=== PATIENT | female | born 1980 | race Caucasian/White ===

== ENCOUNTER 2017-02-21 19:38 | Emergency (ER) | payer MEDICARE, OTHER ==
[~2017-02-21] VITALS: Ht 170.2 cm; Wt 240.0 kg
[2017-02-21 19:41] VITALS: BP 148/67; PULSE 91; RESP 24; TEMP 98.4; O2SAT 92
[2017-02-21] MEDS ORDERED: CARV6.25 PO (22:37)
[2017-02-21] MEDS ORDERED: LISI40TA PO (22:37)
[2017-02-21] MEDS ORDERED: FURO40TA PO (22:37)
[2017-02-21] MEDS ORDERED: LEVEMIR SQ (22:37)
[2017-02-21] MEDS ORDERED: NOVOLOGP2 SQ (22:37)
[2017-02-21] MEDS ORDERED: CYMB60CA PO (22:37)
[2017-02-21] MEDS ORDERED: VENTAER INH (22:37)
[2017-02-21] MEDS ORDERED: LEVO200T4 PO (22:37)
[2017-02-21] MEDS ORDERED: SYMB160A INH (22:38)
[2017-02-21] MEDS ORDERED: POTA10TA2 PO (22:38)
--- NOTE | 2017-02-21 23:56 | PD ---
HPI Chief Complaint: Edema Time Seen by Provider: 22:46 Travel History International Travel<30 days: No Contact w/Intl Traveler<30days: No Traveled to known affect area: No History of Present Illness HPI 36-year-old female came to the emergency room with history of edema. Patient says she has history of congestive heart failure and started to swell up for past 3 days. She is on Lasix as well as multiple medications including insulin for her diabetes. Patient moved to [facility] from [facility] one month ago. She does not have a primary care physician here. She has been trying to find a primary care physician. No history of shortness of breath or chest pain. Patient was concerned that in the past when she has started swelling up like this it has led to respiratory failure and she has required intubation. Patient is however morbidly obese. Vital signs were stable. [facility] Past Medical History Narrative Medical List of her past medical, surgical, social and family history is reviewed from the nursing note. Asthma: Yes Anxiety: Yes Depression: Yes Cardiovascular Problems: Yes (DIASTOLIC HEART FAILURE) Congestive Heart Failure: Yes Diabetes: Yes Patient Takes Glucophage: No Diminished Hearing: No Immunizations Current: Yes Thyroid Disease: Yes (HYPO) ?: Not Past Surgical History Abdominal Surgery: Yes (UMBILICAN HERNIA REPAIR 2005) Cardiac Surgery: Yes (OPEN HEART 1992) Section: Yes (2003) Cholecystectomy: Yes (2003) Hysterectomy: Yes (FULL 2008) Social History Alcohol Use: No Tobacco Use: Yes (5 CIGS PER DAY) Substance Use: No Allergies-Medications (Allergen,Severity, Reaction): Coded Allergies: clindamycin (Verified Allergy, Mild, Rash, 02/21/17) doxycycline (Verified Allergy, Mild, Rash, 02/21/17) erythromycin base (Verified Allergy, Unknown, UNKNOWN, 02/21/17) sulfisoxazole (Verified Allergy, Unknown, UNKNOWN, 02/21/17) morphine (Verified Adverse Reaction, Mild, Headache, 02/21/17) Comments List of her allergies reviewed from the nursing note. Reported Meds & Prescriptions Reported Meds & Active Scripts Active Reported Potassium Chloride ER (Potassium Chloride) 10 Meq Tab 10 Meq PO BID Symbicort Inh (Budesonide/Formoterol Fumarate) 160-4.5 Mcg/Act Aero 2 Puff INH Q12HR Ventolin Hfa 18 GM Inh (Albuterol Sulfate) 90 Mcg/Act Aer 2 Puff INH Q4-6H PRN Novolog Inj (Insulin Aspart) 1,000 Unit/10 Ml Vial 0 SQ DIRECTED Sliding Scale as directed. Levemir Inj (Insulin Detemir) 1,000 unit/ 10 ML Vial 25 Units SQ BID Do not mix with any other Insulin. Lisinopril 40 Mg Tab 40 Mg PO DAILY Coreg (Carvedilol) 6.25 Mg Tab 6.25 Mg PO BID Cymbalta DR (Duloxetine HCl) 60 Mg Capdr 60 Mg PO DAILY Levothyroxine (Levothyroxine Sodium) 200 Mcg Tab 200 Mcg PO DAILY Furosemide 40 Mg Tab 40 Mg PO DAILY Narrative Medication List of her home medications reviewed from the nursing note. Review of Systems Except as stated in HPI: all other systems reviewed are Neg Cardiovascular: Positive: Edema Physical Exam Narrative GENERAL: Awake, alert, no obvious distress, morbidly obese SKIN: Focused skin assessment warm/dry. HEAD: Atraumatic. Normocephalic. EYES: Pupils equal and round. No scleral icterus. No injection or drainage. ENT: No nasal bleeding or discharge. Mucous membranes pink and moist. NECK: Trachea midline. No JVD. CARDIOVASCULAR: Regular rate and rhythm. No murmur appreciated. RESPIRATORY: No accessory muscle use. Clear to auscultation. Breath sounds equal bilaterally. GASTROINTESTINAL: Abdomen soft, non-tender, nondistended. Hepatic and splenic margins not palpable. MUSCULOSKELETAL: No obvious deformities. No clubbing. No cyanosis. No edema. NEUROLOGICAL: Awake and alert. No obvious cranial nerve deficits. Motor grossly within normal limits. Normal speech. PSYCHIATRIC: Appropriate mood and affect; insight and judgment normal. Data Data Last Documented VS Orders Orders Electrocardiogram (02/22/17 00:01) Basic Metabolic Panel (Bmp) (02/22/17 00:01) B-Type Natriuretic Peptide (02/22/17 00:01) Complete Blood Count With Diff (02/22/17 00:01) Magnesium (Mg) (02/22/17 00:01) Prothrombin Time / Inr (Pt) (02/22/17 00:01) Act Partial Throm Time (Ptt) (02/22/17 00:01) Troponin I (02/22/17 00:01) Chest, Single Ap (02/22/17 00:01) Ecg Monitoring (10/25/17 00:01) Bilateral Bp Monitoring (02/22/17 00:01) Iv Access Insert/Monitor (02/22/17 00:01) Oximetry (02/22/17 00:01) Oxygen Administration (02/22/17 00:01) Sodium Chloride 0.9% Flush (Ns Flush) (02/22/17 00:15) Ed Discharge Order (02/22/17 01:03) Labs Laboratory Tests Test 02/22/17 00:04 White Blood Count 13.6 TH/MM3 Red Blood Count 4.84 MIL/MM3 Hemoglobin 13.9 GM/DL Hematocrit 43.0 % Mean Corpuscular Volume 88.7 FL Mean Corpuscular Hemoglobin 28.7 PG Mean Corpuscular Hemoglobin Concent 32.3 % Red Cell Distribution Width 14.0 % Platelet Count 195 TH/MM3 Mean Platelet Volume 8.6 FL Neutrophils (%) (Auto) 55.3 % Lymphocytes (%) (Auto) 33.8 % Monocytes (%) (Auto) 6.7 % Eosinophils (%) (Auto) 3.4 % Basophils (%) (Auto) 0.8 % Neutrophils # (Auto) 7.5 TH/MM3 Lymphocytes # (Auto) 4.6 TH/MM3 Monocytes # (Auto) 0.9 TH/MM3 Eosinophils # (Auto) 0.5 TH/MM3 Basophils # (Auto) 0.1 TH/MM3 CBC Comment DIFF FINAL Differential Comment Prothrombin Time 10.1 SEC Prothromb Time International Ratio 0.9 RATIO Activated Partial Thromboplast Time 26.3 SEC Blood Urea Nitrogen 24 MG/DL Creatinine 0.66 MG/DL Random Glucose 203 MG/DL Calcium Level 8.6 MG/DL Magnesium Level 1.9 MG/DL Sodium Level 138 MEQ/L Potassium Level 3.9 MEQ/L Chloride Level 101 MEQ/L Carbon Dioxide Level 31.3 MEQ/L Anion Gap 6 MEQ/L Estimat Glomerular Filtration Rate 101 ML/MIN Troponin I LESS THAN 0.02 NG/ML B-Type Natriuretic Peptide 53 PG/ML MDM Medical Decision Making Medical Screen Exam Complete: Yes Emergency Medical Condition: Yes Medical Record Reviewed: Yes Interpretation(s) Twelve-lead EKG was reviewed by me. Normal sinus rhythm, normal axis, nonspecific ST-T wave changes. Heart rate of 73 bpm Differential Diagnosis Congestive heart failure, morbid obesity Narrative Course 1:01 AM the test results of back including BNP and they are within normal limit. Chest x-rays negative. I'll discharge her home. Procedures EKG Prior to Arrival: No Diagnosis Primary Impression: Morbid obesity Referrals: Primary Care Physician Additional Instructions: You need a primary care physician given your multiple ongoing medical problems. Continue taking her medications like is supposed to. Exercise and diet control would be a good way to reduce weight. Gastric bypass surgery would be another option. Your primary care could refer you for that. Med/Other Pt SpecificInfo: No Change to Meds Disposition: 01 DISCHARGE HOME Condition: Stable Tahira Jacobs MD Feb 21, 2017 23:56
[2017-02-22 00:09] VITALS: RESP 20; O2SAT 96
[2017-02-22] MEDS ORDERED: SODIUM CHLORIDE 0.9% FLUSH 10 ML FLUSH IVF PRN (00:15)
[2017-02-22 00:21] LABS: AUTOMATED NEUTROPHIL # 7.5 TH/MM3 (1.8-7.7); BASOPHIL # 0.1 TH/MM3 (0-0.2); BASOPHIL % 0.8 % (0.0-2.0); EOSINOPHIL # 0.5 TH/MM3 (0-0.4); EOSINOPHIL % 3.4 % (0.0-4.0); HEMO FLAGS DIFF FINAL; LYMPH % 33.8 % (9.0-44.0); LYMPHOCYTE # 4.6 TH/MM3 (1.0-4.8); MEAN CELL VOLUME 88.7 FL (80.0-100.0); MEAN CORPUSCULAR HEMOGLOBIN 28.7 PG (27.0-34.0); MEAN CORPUSCULAR HGB CONC 32.3 % (32.0-36.0); MONO % 6.7 % (0.0-8.0); NEUT % 55.3 % (16.0-70.0); PLATELET COUNT 195 TH/MM3 (150-450); RED BLOOD COUNT 4.84 MIL/MM3 (4.00-5.30); WHITE BLOOD COUNT 13.6 TH/MM3 (4.0-11.0)
--- NOTE | 2017-02-22 00:24 | RADRPT ---
EXAM DATE/TIME: 02/22/2017 00:08 [place] COMPARISON: No previous studies available for comparison. INDICATIONS : Chest pain. MEDICAL HISTORY : Congestive heart failure. SURGICAL HISTORY : CABG. ENCOUNTER: Initial ACUITY: 3 days PAIN SCORE: 7/10 LOCATION: Bilateral chest FINDINGS: A single view of the chest demonstrates the lungs to be symmetrically aerated without evidence of mas s, infiltrate or effusion. Status post median sternotomy. The cardiomediastinal contours are unremark able. Osseous structures are intact. CONCLUSION: No acute disease. Kaz Alejandro MD on February 22, 2017 at 0:22 Board Certified Radiologist. This report was verified electronically.
[2017-02-22 00:30] LABS: APTT (PATIENT) 26.3 SEC (24.3-30.1); INTERNATIONAL NORMALIZED RATIO 0.9 RATIO; PROTHROMBIN TIME - PATIENT 10.1 SEC (9.8-11.6)
[2017-02-22 00:51] LABS: ANION GAP 6 MEQ/L (5-15); BICARBONATE 31.3 MEQ/L (21.0-32.0); BLOOD UREA NITROGEN 24 MG/DL (7-18); CHLORIDE 101 MEQ/L (98-107); GLOMERULAR FILTRATION RATE 101 ML/MIN (>89); MAGNESIUM 1.9 MG/DL (1.5-2.5); POTASSIUM 3.9 MEQ/L (3.5-5.1); SODIUM (NA) 138 MEQ/L (136-145)
[2017-02-22 01:23] VITALS: BP 154/78; PULSE 88; RESP 20; O2SAT 98
--- NOTE | 2017-02-22 21:24 | EKG ---
Date Performed: 02/21/2017 Time Performed: 22:41:22 PTAGE: 36 years EKG: Sinus rhythm BORDERLINE RIGHT AXIS DEVIATION BORDERLINE ECG NO PREVIOUS TRACING DOCTOR: Smith Coleman Interpretating Date/Time 02/22/2017 21:24:07
== END 2017-02-22 01:24 | disposition home or self-care (01) ==
LOC: NEPE 19:38
DX: E66.01 Morbid (severe) obesity due to excess calories (principal); I50.9 Heart failure, unspecified; E11.9 Type 2 diabetes mellitus without complications; J45.909 Unspecified asthma, uncomplicated; F41.9 Anxiety disorder, unspecified; F32.9 Major depressive disorder, single episode, unspecified; E03.9 Hypothyroidism, unspecified; Z79.4 Long term (current) use of insulin; Z79.899 Other long term (current) drug therapy
CPT/HCPCS: 71010; 80048; 83735; 83880; 84484; 85025; 85610; 85730; 93005; 99285